=== PATIENT | female | born 1995 | race Caucasian/White ===

== ENCOUNTER 2021-01-23 16:23 | Emergency (ER) | payer OTHER, SELFPAY ==
--- NOTE | ~2021-01-23 | CT_ITS ---
EXAMINATION: CT ABDOMEN AND PELVIS WITHOUT CONTRAST CLINICAL INFORMATION: Left lower quadrant pain. COMPARISON: None TECHNIQUE: Multidetector volumetric imaging was performed from the superior aspect of the liver through the pubic symphysis. Sagittal and coronal reformatted images were obtained on the technologist's workstation. This CT examination was performed using dose optimization techniques as appropriate, variously including the following: Automated exposure control. Adjustment of mA and/or kV according to patient size (this includes techniques or standardized protocols for targeted exams where dose is matched to indication/reason for exam; i.e. extremities or head). Use of iterative reconstruction technique. DLP: 397 mGy-cm FINDINGS: LUNG BASES: The visualized lung bases are unremarkable. LIVER, GALLBLADDER, AND BILIARY TREE: The liver is normal in size, shape, and attenuation. No focal hepatic lesion or biliary ductal dilatation is present. The gallbladder is unremarkable with no evidence of radiopaque gallstones, gallbladder wall thickening, or obvious pericholecystic inflammatory changes. PANCREAS: Unremarkable. SPLEEN: Unremarkable. ADRENAL GLANDS: Unremarkable. KIDNEYS AND URETERS: The kidneys are normal in size, shape, and attenuation. Nonobstructing right midpole renal stone measuring 0.2 cm, too small to characterize by Hounsfield units. This is located approximately 6.3 cm from the posterior axillary line. No left-sided renal or ureteral stone. No hydronephrosis or hydroureter. No perinephric stranding. BLADDER: Unremarkable. GASTROINTESTINAL TRACT: No bowel wall thickening or associated inflammatory change. No small or large bowel obstruction. Unremarkable appendix. PERITONEAL CAVITY: No intra-abdominal free air. Bdki-ol-wyvnwjnf simple free fluid within the pelvis. No organized fluid collection/abscess formation. No mass. ABDOMINAL WALL: No significant hernia is appreciated. LYMPH NODES: Normal. VASCULAR: Unremarkable. PELVIC VISCERA: Pelvic free fluid. Otherwise, the uterus and adnexa appear unremarkable. OSSEOUS STRUCTURES: Unremarkable. CT/CT abdomen pelvis wo con IMPRESSION: 1. Ycio-by-jaqfplzc, simple pelvic free fluid. Otherwise, the uterus and adnexa appear grossly unremarkable. 2. Nonobstructing right midpole renal stone measuring 0.2 cm. No additional renal or ureteral stone. No hydronephrosis or hydroureter. Unremarkable urinary bladder. 3. No bowel wall thickening or associated inflammatory change. No small or large bowel obstruction. Unremarkable appendix.
[2021-01-23 16:35] VITALS: BP 113/82; PULSE 81; RESP 18; O2SAT 99; BMI 23.4
[2021-01-23 17:16] LABS: MANUAL DIFF FLAG NO
[2021-01-23 17:21] LABS: Basophils Absolute Auto 0.1 X10*3/uL (0.0-0.2); Basophils Percent Auto 0.5 % (0-2); Eosinophils Absolute Auto 0.1 X10*3/uL (0.0-0.4); Eosinophils Percent Auto 0.6 % (0-4); Hematocrit 45.7 % (37-47); Hemoglobin 15.5 g/dl (12.0-16.0); Imm Gran Abs Auto 0.04 X10*3/uL (0.00-0.03); Imm Gran Pct Auto 0.4 % (0.0-0.4); Lymphocytes Absolute Auto 2.1 X10*3/uL (1.2-4.9); Mean Corpuscular HGB Conc 33.9 g/dl (31.0-35.0); Mean Corpuscular Volume 91.4 fL (80-98); Mean Platelet Volume 9.7 fL (9.4-12.3); Monocytes Absolute Auto 0.6 X10*3/uL (0.1-1.2); Monocytes Percent Auto 5.6 % (2-11); Neutrophils Absolute Auto 8.5 X10*3/uL (2.0-8.3); Neutrophils Percent Auto 74.9 % (45-73); Platelet Count 232 X10*3/uL (160-400); Red Cell Distribution Width 11.9 % (11.0-16.0); White Blood Count 11.4 X10*3/uL (4.8-10.8)
[2021-01-23 17:22] LABS: Glucose Urine UA NEG (NEG); Leukocyte Esterase Urine TRACE (NEG); Nitrite Urine NEG (NEG); Specific Gravity - Urine <= 1.005 (1.005-1.025); UACC Culture Trigger YES; Urine Blood NEG (NEG); Urine Ketones NEG (NEG); Urine Protein NEG (NEG-TRACE)
[2021-01-23 17:24] LABS: Appearance Urine CLEAR; Color Urine YELLOW
[2021-01-23 17:37] LABS: Bacteria Urine 1+ /LPF; RBC Urine 0 /HPF (0); Squamous Epithelial Cell Urine 1+ /LPF; WBC Urine 0-2 /HPF (0-4)
[2021-01-23 17:48] LABS: Alanine Aminotransferase 13 U/L (0-31); Albumin Level 4.6 g/dL (3.5-5.0); Alkaline Phosphatase 72 U/L (39-117); Anion Gap 13 (12-20); Aspartate Amino Transferase 19 U/L (5-31); Bilirubin Total 0.4 mg/dL (0.0-1.0); Blood Urea Nitrogen 12 mg/dL (9-16); Calcium 9.9 mg/dL (8.4-10.2); Carbon Dioxide 28 mmol/L (22-29); Chloride 103 mmol/L (96-108); Creatinine Clr Calc Pharmacy 77.9; Estimated Glomerular Filt Rate > 60; Glucose Random 86 mg/dL (60-115); Potassium 4.6 mmol/L (3.3-5.1); Sodium 139 mmol/L (135-145); Total Protein 7.9 g/dL (6.5-8.0)
[2021-01-23 19:56] VITALS: BP 115/69; PULSE 87; RESP 16; TEMP 36.7; O2SAT 99
--- NOTE | 2021-01-23 20:30 | ED_ITS ---
HPI - Abdominal Pain General Chief Complaint: Abdominal Pain Stated Complaint: lower abdominal pain Time Seen by Provider: 01/23/21 17:24 Source: patient Mode of arrival: ambulatory Limitations: no limitations History of Present Illness HPI narrative: 25-year-old female presents with left lower quadrant abdominal pa in. Was evaluated at urgent care and referred to the emergency department for further workup. She states that she has had the pain accompanied with nausea and vomiting for 1 day. She does not report fevers or chills, chest pain or pressure, palpitations, shortness breath, abdominal distention, hematuria, and edema. MD elicited complaint: abdominal pain Onset (ago): day(s) (1) Pain Consistency: constant Location: LLQ Severity: moderate Quality: aching Migration to: no migration Exacerbating factors: movement Relieving factors: nothing Associated symptoms: nausea and vomiting Treatments prior to arrival: NSAIDs Related Data Previous Rx's Medication Instructions Recorded cetirizine 10 mg capsule 10 mg PO DAILY PRN #30 cap 06/17/20 prednisone 20 mg tablet 20 mg PO DAILY 9 Days #18 tab MDD 06/17/20 3 for 3days;2 for 3 days;1 3da fluconazole 150 mg tablet 150 mg PO Q OTHER DAY 3 Days #2 tab 12/13/20 levofloxacin 500 mg tablet 500 mg PO DAILY 7 Days #7 tab 12/13/20 prednisone 20 mg tablet 20 mg PO .COMPLEX #18 tab 12/13/20 levofloxacin 500 mg PO Q24H #6 tab 01/23/21 tamsulosin [Flomax] 0.4 mg PO DAILY #14 cap 01/23/21 Allergies Allergy/AdvReac Type Severity Reaction Status Date / Time clindamycin [CLINDAMYCIN] Allergy Severe HIVES Verified 01/23/21 16:35 sulfamethoxazole Allergy Severe HIVES Verified 01/23/21 16:35 [From BACTRIM] trimethoprim [From BACTRIM] Allergy Severe HIVES Verified 01/23/21 16:35 acetaminophen [Percocet] Allergy Intermediate hives Verified 01/23/21 16:35 oxycodone [From PERCOCET] Allergy Intermediate HIVES Verified 01/23/21 16:35 penicillin G Allergy Intermediate hives Verified 01/23/21 16:35 Sulfa (Sulfonamide Allergy Intermediate hives Verified 01/23/21 16:35 Antibiotics) hydrocodone [HYDROCODONE] Allergy Mild SWELLING Verified 01/23/21 16:35 pineapple [PINEAPPLE] Allergy Mild SWELLING Verified 01/23/21 16:35 sumatriptan [From IMITREX] Allergy Mild ANAPHYLAXIS Verified 01/23/21 16:35 Clindamycin HCl Allergy Severe anaphylaxis Uncoded 01/23/21 16:35 Review of Systems Review of Systems Constitutional: No Fever, No Chills ENT/Mouth: No Ear Pain, No Hoarseness, No sore throat Eyes: No Eye Pain, No Swelling, No Redness, No Foreign Body Cardiovascular: No Chest Pain, No SOB Respiratory: No Cough, No Dyspnea Gastrointestinal: Positive Nausea, positive Vomiting, No Diarrhea, positive left lower quadrant abdominal Pain Genitourinary: No Dysuria, No Hematuria Musculoskeletal: No joint pain, No Myalgias, No Joint Swelling Skin: No Skin lacerations, No rash Neuro: No Weakness, No Numbness, No Paresthesias, No Loss of Consciousness, No Dizziness, No Headache Psych: No Anxiety/Panic, No Depression Heme/Lymph: no easy bruising, no Lymphadenopathy Endocrine: No Polyuria, No Polydipsia Yes all other systems are reviewed and are negative Physical Exam Vital Signs: Vital Signs: Last Vital Signs Temp 97.0 F 01/23/21 22:00 Pulse 64 01/23/21 22:00 Resp 16 01/23/21 22:00 BP 114/74 01/23/21 22:00 Pulse Ox 99 01/23/21 22:00 Body Mass Index 23.4 Appearance: Alert. Oriented X3. Mild distress. Eyes: Pupils equal, round and reactive to light. ENT: Pharynx normal. Neck: Normal inspection. Neck supple. CVS: Normal heart rate and rhythm. Pulses normal. Respiratory: No respiratory distress. Breath sounds normal. Abdomen: Soft and tender to the left lower quadrant, positive left-sided CVA tenderness. Skin: Skin warm and dry. Normal skin color. Normal skin turgor. Extremities: No lower extremity edema. Neuro: No motor deficit. No sensory deficit. Course Course Course Narrative: 25-year-old female presents for left lower quadrant abdominal pain. She was evaluated by urgent care who felt that she needed a larger workup. She does have positive leukocyte esterase and elevated white count of 11.4. She does not have any prior abdominal surgeries, and no history of kidney stones. Will order CT scan of abdomen. CT scan of abdomen and pelvis indicates kidney stone. No indication of pyelo or perinephric stranding. Will give Levaquin because patient is allergic to all penicillins and Bactrim. Patient does understand the risks of this medication and tendon rupture. Patient verbalized understanding of and agrees to plan of care discharge home. MDM - Abdominal Pain Differential Diagnosis Differential diagnosis: Likely abdominal pain, acute appendicitis, bowel perforation, calculus of kidney, pancreatitis and renal colic Medical Records Attestation: I reviewed the patient's medical records. Lab Data Attestation: I reviewed the patient's lab results. Result diagrams: 01/23/21 17:08 01/23/21 17:08 Labs: Lab Results 01/23/21 01/23/21 01/23/21 Range/Units 17:08 17:08 17:08 WBC 11.4 H (4.8-10.8) X10*3/uL RBC 5.00 (4.20-5.50) X10*6/uL Hgb 15.5 (12.0-16.0) g/dl Hct 45.7 (37-47) % MCV 91.4 (80-98) fL MCH 31.0 (27.0-33.0) pg MCHC 33.9 (31.0-35.0) g/dl RDW 11.9 (11.0-16.0) % Plt Count 232 (160-400) X10*3/uL MPV 9.7 (9.4-12.3) fL Immature Gran % (Auto) 0.4 (0.0-0.4) % Neut % (Auto) 74.9 H (45-73) % Lymph % (Auto) 18.0 L (20-40) % [place] % (Auto) 5.6 (2-11) % Eos % (Auto) 0.6 (0-4) % Baso % (Auto) 0.5 (0-2) % Lymph # (Auto) 2.1 (1.2-4.9) X10*3/uL [place] # (Auto) 0.6 (0.1-1.2) X10*3/uL Eos # (Auto) 0.1 (0.0-0.4) X10*3/uL Baso # (Auto) 0.1 (0.0-0.2) X10*3/uL Abs Immat Gran (auto) 0.04 H (0.00-0.03) X10*3/uL Absolute Neuts (auto) 8.5 H (2.0-8.3) X10*3/uL Absolute Nucleated RBC 0.000 (0.0-0.012) X10*3/uL Nucleated RBC % (auto) 0.0 (0.0-0.2) /100WBC Sodium 139 (135-145) mmol/L Potassium 4.6 (3.3-5.1) mmol/L Chloride 103 (96-108) mmol/L Carbon Dioxide 28 (22-29) mmol/L Anion Gap 13 (12-20) BUN 12 (9-16) mg/dL Creatinine 0.84 (0.5-1.4) mg/dL Estim Creat Clear Calc 77.9 Estimated GFR > 60 Random Glucose 86 (60-115) mg/dL Calcium 9.9 (8.4-10.2) mg/dL Total Bilirubin 0.4 (0.0-1.0) mg/dL AST 19 (5-31) U/L ALT 13 (0-31) U/L Alkaline Phosphatase 72 (39-117) U/L Total Protein 7.9 (6.5-8.0) g/dL Albumin 4.6 (3.5-5.0) g/dL Urine Color YELLOW Urine Appearance CLEAR Urine pH 6.0 (5.0-8.0) Ur Specific [place] <= 1.005 (1.005-1.025) Urine Protein NEG (NEG-TRACE) MG/DL Urine Glucose (UA) NEG (NEG) MG/DL Urine Ketones NEG (NEG) MG/DL Urine Blood NEG (NEG) Urine Nitrite NEG (NEG) Ur Leukocyte Esterase TRACE H (NEG) Urine RBC 0 (0) /HPF Urine WBC 0-2 (0-4) /HPF Ur Squamous Epith Cells 1+ /LPF Urine Bacteria 1+ /LPF Imaging Data CT scan - abdomen: Attestation: I personally reviewed and interpreted this imaging study as follows: Radiologist's impression: FINDINGS: LUNG BASES: The visualized lung bases are unremarkable. LIVER, GALLBLADDER, AND BILIARY TREE: The liver is normal in size, shape, and attenuation. No focal hepatic lesion or biliary ductal dilatation is present. The gallbladder is unremarkable with no evidence of radiopaque gallstones, gallbladder wall thickening, or obvious pericholecystic inflammatory changes. PANCREAS: Unremarkable. SPLEEN: Unremarkable. ADRENAL GLANDS: Unremarkable. KIDNEYS AND URETERS: The kidneys are normal in size, shape, and attenuation. Nonobstructing right midpole renal stone measuring 0.2 cm, too small to characterize by Hounsfield units. This is located approximately 6.3 cm from the posterior axillary line. No left-sided renal or ureteral stone. No hydronephrosis or hydroureter. No perinephric stranding. BLADDER: Unremarkable. GASTROINTESTINAL TRACT: No bowel wall thickening or associated inflammatory change. No small or large bowel obstruction. Unremarkable appendix. PERITONEAL CAVITY: No intra-abdominal free air. Pvbi-yx-uvrmkdgx simple free fluid within the pelvis. No organized fluid collection/abscess formation. No mass. ABDOMINAL WALL: No significant hernia is appreciated. LYMPH NODES: Normal. VASCULAR: Unremarkable. PELVIC VISCERA: Pelvic free fluid. Otherwise, the uterus and adnexa appear unremarkable. OSSEOUS STRUCTURES: Unremarkable. CT/CT abdomen pelvis wo con IMPRESSION: 1. Ectw-nq-lphydqyb, simple pelvic free fluid. Otherwise, the uterus and adnexa appear grossly unremarkable. 2. Nonobstructing right midpole renal stone measuring 0.2 cm. No additional renal or ureteral stone. No hydronephrosis or hydroureter. Unremarkable urinary bladder. 3. No bowel wall thickening or associated inflammatory change. No small or large bowel obstruction. Unremarkable appendix. Discharge Plan Discharge Clinical Impression: Calculus of kidney, UTI (urinary tract infection) Patient Disposition: Home, Self-Care Instructions: Kidney Stones (ED), Urinary Tract Infection in Women (ED) Additional Instructions: You were evaluated for left lower flank and abdominal pain. CT scan shows a kidney stone on the left side and urinalysis indicates UTI. Please take Bactrim DS twice a day for the next 7 days. For the kidney stone please take Flomax. This medication may drop her blood pressure and cause dizziness. Use caution when changing positions Please follow-up with primary care physician. You may need follow-up for this kidney stone. You may also consider following up with Urology. Thank you for choosing this emergency department for evaluation. Please follow-up with primary care physician as needed. Return to the emergency department for any new, concerning, or worsening symptoms. Prescriptions: New levofloxacin 500 mg tablet 500 mg PO Q24H Qty: 6 RF: 0 tamsulosin [Flomax] 0.4 mg capsule 0.4 mg PO DAILY Qty: 14 RF: 0 No Action prednisone 20 mg tablet 20 mg PO DAILY MDD 3 for 3days;2 for 3 days;1 3da 9 Days Qty: 18 RF: 0 Zyrtec 10 mg capsule 10 mg PO DAILY PRN (Reason: itching) Qty: 30 RF: 0 prednisone 20 mg tablet 20 mg PO .COMPLEX Qty: 18 RF: 0 levofloxacin 500 mg tablet 500 mg PO DAILY 7 Days Qty: 7 RF: 0 fluconazole 150 mg tablet 150 mg PO Q OTHER DAY 3 Days Qty: 2 RF: 0 Referrals: Zack Dutton MD [Physician] - 2 days (Left kidney stone) Interventions: ED Discharge Assessment Last Done: 01/23/21 23:25 Discharge Date/Time: 01/23/21 23:39 [facility] Past Medical History Attestation statement: The following information was validated with the patient. Source: old records reviewed Medical History Migraines Social History Social History Advance Directives: No Advance Directives Information Provided: No Patient : No
[2021-01-23 22:00] VITALS: BP 114/74; PULSE 64; RESP 16; TEMP 36.1; O2SAT 99
[2021-01-23] MEDS: levoFLOXacin 500 MG TABLET PO (22:48)
[2021-01-23] MEDS: Ketorolac Tromethamine 60 MG/2 ML VIAL IM (22:48)
[2021-01-23] MEDS: Tamsulosin HCL 0.4 MG CAPSULE PO (22:48)
== END 2021-01-23 23:39 | disposition home or self-care (01) ==
PROVIDERS: Emergency Provider Internal Medicine; PCP Internal Medicine
DX: N20.0 Calculus of kidney (principal); N39.0 Urinary tract infection, site not specified; R10.32 Left lower quadrant pain; Z79.899 Other long term (current) drug therapy
CPT/HCPCS: 36415; 74176; 80053; 81001; 81003; 85025; 87086; 96372; 99284; J1885

== ENCOUNTER 2023-04-02 10:02 | Outpatient (AMB) | payer OTHER, SELFPAY ==
--- NOTE | 2023-04-02 11:15 | MHC.OFFWIV ---
Intake Vital Signs 04/02/23 11:17 Height 5 ft 1 in Weight 122 lb BMI 23.0 BP 110/62 Blood Pressure Location Rt brachial Position Sitting Pulse 68 Pulse Source Pulse Oximeter Temp 98.0 F Temp Source Temporal Artery Scan Pulse Oximetry (%) 99 Intake Visit Reasons: EST/sore throat due to cleaning supplies? Intake Note: pt is here for c/o sore throat due smoking weed or dusting at home. denies feeling sick just throat is sore Patient Tobacco Use Status: Never used Tobacco Allergies clindamycin [CLINDAMYCIN] Allergy (Severe, Verified 04/02/23 11:16) HIVES sulfamethoxazole [From BACTRIM] Allergy (Severe, Verified 04/02/23 11:16) HIVES trimethoprim [From BACTRIM] Allergy (Severe, Verified 04/02/23 11:16) HIVES acetaminophen [Percocet] Allergy (Intermediate, Verified 04/02/23 11:16) hives oxycodone [From PERCOCET] Allergy (Intermediate, Verified 04/02/23 11:16) HIVES penicillin G Allergy (Intermediate, Verified 04/02/23 11:16) hives Sulfa (Sulfonamide Antibiotics) Allergy (Intermediate, Verified 04/02/23 11:16) hives hydrocodone [HYDROCODONE] Allergy (Mild, Verified 04/02/23 11:16) SWELLING pineapple [PINEAPPLE] Allergy (Mild, Verified 04/02/23 11:16) SWELLING sumatriptan [From IMITREX] Allergy (Mild, Verified 04/02/23 11:16) ANAPHYLAXIS Clindamycin HCl Allergy (Severe, Uncoded 02/07/22 14:51) anaphylaxis Medication List - Last Reconciled 04/02/23 by Danny Salas MD azithromycin take 500 mg today (day 1), then 250 mg for 4 days (days 2-5) PO cetirizine (Zyrtec) 10 mg PO DAILY PRN norethindrone-ethin estradiol 0.4-35 mg-mcg (Balziva (28)) 1 tab PO DAILY Do you need a note to return to daycare/school/sports/work: Yes HPI EST/sore throat due to cleaning supplies? HPI Details Patient presents for a sick visit. Reporting symptoms of sinus congestion, sore throat and difficulty swallowing. Low-grade fever. No family member is sick. No recent travel. Patient reports symptoms of malaise and fatigue. [facility] Medical History Migraines Social History Patient Tobacco Use Status: Never used Tobacco Physical Exam Vital Signs: Last Vital Signs Temp 98.0 F 04/02/23 11:17 Pulse 68 04/02/23 11:17 BP 110/62 04/02/23 11:17 Pulse Ox 99 04/02/23 11:17 BMI result Body Mass Index 23.0 Const General: cooperative and healthy appearing Nutritional Appearance: well nourished Orientation/consciousness: patient oriented x3 Limitations: no limitations HEENT Head: Yes normal to inspection Eyes General: appearance normal, both eyes and all related structures Neck Neck: Yes normal visual inspection Chest Chest palpation & inspection: normal palpation of entire chest wall Resp Effort & Inspection: normal respiratory effort Neuro General: patient oriented x3 Assessment & Plan Assessment & Plan (1) Acute sinusitis: Code(s): J01.90 - Acute sinusitis, unspecified Qualifiers: Sinusitis location: unspecified location Recurrence: not specified as recurrent Qualified Code(s): J01.90 - Acute sinusitis, unspecified Plan: Antibiotics ordered. Increase fluid intake. Tylenol for aches and pains. If symptoms worsen, follow-up here for a recheck.. COVID testing done, will call with results. Up for work given. Orders: Orders SARS-CoV2/FLU/RSV Today R43.9 - Unspecified disturbances of smell and taste Medications: New azithromycin take 500 mg today (day 1), then 250 mg for 4 days (days 2-5) PO 6 tabs 0RF Coding Level of Care Code Est Pt Level 3 (16888) Diagnoses Acute sinusitis, recurrence not specified, unspecified location J01.90 Sinusitis location: unspecified location Recurrence: not specified as recurrent
[2023-04-02 11:17] VITALS: BP 110/62; PULSE 68; TEMP 36.7; O2SAT 99; BMI 23.0
== END 2023-04-02 11:54 | disposition home or self-care (01) ==
PROVIDERS: PCP Internal Medicine; Visit Provider Internal Medicine
DX: J01.90 Acute sinusitis, unspecified (principal)
CPT/HCPCS: 99213

== ENCOUNTER 2023-04-02 11:52 | Outpatient (REF) | payer OTHER, SELFPAY ==
[2023-04-02 15:56] LABS: Influenza A PCR NEGATIVE (Negative); Influenza B PCR NEGATIVE (Negative); Resp Syncy Virus RNA Qual PCR NEGATIVE (Negative); SARS COV2 PCR INHOUSE NEGATIVE (Negative)
== END 2023-04-02 11:53 | disposition home or self-care (01) ==
LOC: HO.LAB 11:52
PROVIDERS: Visit Provider Internal Medicine
DX: R43.9 Unspecified disturbances of smell and taste (principal); Z20.822 Contact with and (suspected) exposure to COVID-19
CPT/HCPCS: 0241U

== ENCOUNTER 2023-04-13 14:07 | Outpatient (AMB) | payer OTHER, SELFPAY ==
--- NOTE | 2023-04-13 15:36 | MHC.OFFWIV ---
Intake Vital Signs 04/13/23 15:43 Weight 124 lb BP 120/70 Blood Pressure Location Rt brachial Position Sitting Pulse 66 Pulse Source Pulse Oximeter Pulse Oximetry (%) 100 Oxygen Delivery Method Room Air Intake Visit Reasons: EST/fractured right hand Intake Note: Patient here for possible Right hand fracture, pt states she was boxing the other day without gear. Patient Tobacco Use Status: Never used Tobacco Allergies clindamycin [CLINDAMYCIN] Allergy (Severe, Verified 04/13/23 15:41) HIVES sulfamethoxazole [From BACTRIM] Allergy (Severe, Verified 04/13/23 15:41) HIVES trimethoprim [From BACTRIM] Allergy (Severe, Verified 04/13/23 15:41) HIVES acetaminophen [Percocet] Allergy (Intermediate, Verified 04/13/23 15:41) hives oxycodone [From PERCOCET] Allergy (Intermediate, Verified 04/13/23 15:41) HIVES penicillin G Allergy (Intermediate, Verified 04/13/23 15:41) hives Sulfa (Sulfonamide Antibiotics) Allergy (Intermediate, Verified 04/13/23 15:41) hives hydrocodone [HYDROCODONE] Allergy (Mild, Verified 04/13/23 15:41) SWELLING pineapple [PINEAPPLE] Allergy (Mild, Verified 04/13/23 15:41) SWELLING sumatriptan [From IMITREX] Allergy (Mild, Verified 04/13/23 15:41) ANAPHYLAXIS Clindamycin HCl Allergy (Severe, Uncoded 04/13/23 15:41) anaphylaxis Do you need a note to return to daycare/school/sports/work: No HPI HPI Comments History of Present Illness Details This is a 27-year-old female who presents to the office today for sick visit. Patient complaining of right hand pain, swelling, and bruising. 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 However, she did not however close the other day but continued to box and punch the punching bag. She developed pain, swelling, and bruising of her right hand. She denies any numbness /weakness / paresthesias of her extremity. [facility] Medical History Migraines Social History Patient Tobacco Use Status: Never used Tobacco Review of Systems Const All systems reviewed & are unremarkable except as noted in HPI and below Reports no additional complaints Eyes Reports no additional complaints ENT Reports no additional complaints Card Reports no additional complaints Resp Reports no additional complaints GI Reports no additional complaints Reports no additional complaints Musc Reports no additional complaints Skin/Breast Reports system reviewed and no additional complaints, except as documented Neuro Reports no additional complaints Psych Reports no additional complaints Endo Reports no additional complaints [place]/Lymph Reports no additional complaints Aller/Immun Reports no additional complaints Physical Exam Vital Signs: Last Vital Signs Pulse 66 04/13/23 15:43 BP 120/70 04/13/23 15:43 Pulse Ox 100 04/13/23 15:43 Oxygen Delivery Method Room Air 04/13/23 15:43 Const Other: Vital signs reviewed. Constitutional: Non-toxic appearing. No acute distress. Well-developed and well-nourished. HEENT: Normocephalic and atraumatic. Tympanic membranes without erythema, edema, or bulging bilaterally. External auditory canals without erythema or edema bilaterally. Moist mucous membranes. No pharyngeal erythema or exudates. Skin: Warm and dry. No rashes or lesions noted. Neck: Full and painless range of motion. No cervical lymphadenopathy. Cardio: Regular rate and rhythm. No murmurs, gallops, or rubs. No lower extremity edema. No JVD. Pulmonary: No respiratory distress. No accessory muscle usage. Clear to auscultation bilaterally without wheezing, crackles, or rhonchi. Gastrointestinal: Soft, nontender, and nondistended in all 4 quadrants. Normoactive bowel sounds in all 4 quadrants. Genitourinary: No CVA tenderness. Musculoskeletal: There is swelling and ecchymosis located at the right 3rd MCP joint and there is tenderness to palpation of the right 3rd metacarpal and MCP joint. Patient has full range of motion of all 5 fingers. No tenderness to palpation of the right wrist. Full range of motion of the right wrist. Neuro: Alert and oriented x4. Cranial nerves 2-12 grossly intact. No focal deficits appreciated. Psych: Normal mood and affect. Assessment & Plan Assessment & Plan (1) Right hand pain: Code(s): M79.641 - Pain in right hand Plan: This is a 27-year-old female presenting to the office complaining of right hand pain, swelling, and ecchymosis. Differential diagnosis includes fracture versus contusion. X-ray of the right hand was obtained and was negative for any acute fracture. History and physical most consistent with a contusion of the right 3rd metacarpal/ MCP joint. Recommended rest/activity modification, ice to the area, and elevation of the extremity. Continue with acetaminophen/ibuprofen for pain management as long as patient has no medical contraindications. Patient was instructed to follow-up here or proceed directly to the emergency room for persistent/ worsening symptoms. Patient verbalizes her understanding and she is in agreement with the plan. Coding Level of Care Code Est Pt Level 3 (55802) Diagnoses Right hand pain M79.641
[2023-04-13 15:43] VITALS: BP 120/70; PULSE 66; O2SAT 100
== END 2023-04-13 17:00 ==
PROVIDERS: PCP Internal Medicine; Visit Provider Physician Assistant Medical
DX: M79.641 Pain in right hand (principal)
CPT/HCPCS: 99213

== ENCOUNTER 2023-04-13 16:11 | Outpatient (REF) | payer OTHER, SELFPAY | END 2023-04-13 16:12 | disposition home or self-care (01) | LOC: HO.HMGCX 16:11 | PROVIDERS: Visit Provider Physician Assistant Medical | DX: M79.641 Pain in right hand (principal) | CPT/HCPCS: 73130 ==

== ENCOUNTER 2023-04-14 10:43 | Emergency (ER) | payer OTHER, SELFPAY ==
[2023-04-14 10:52] VITALS: BP 144/98; PULSE 79; RESP 19; TEMP 36.6; O2SAT 100; BMI 22.0
[2023-04-14 12:06] VITALS: BP 121/78; PULSE 67; RESP 16; O2SAT 100
--- NOTE | 2023-04-14 12:32 | ED.GENADULT ---
HPI - General Adult General Chief complaint: Abdominal Pain Stated complaint: kidney stones? Time Seen by Provider: 04/14/23 12:32 Source: patient Mode of arrival: ambulatory Limitations: no limitations History of Present Illness HPI narrative: Patient is a 27 year old assigned female at with a history of kidney stones presenting to the emergency department today with left flank pain. Patient states that this morning she started having left flank pain and it feels consistent with her previous kidney stones. Patient denies any dizziness, lightheadedness, abdominal pain, nausea, vomiting, fever, chills, blurry vision, double vision, loss of vision, chest pain, difficulty breathing, shortness of breath, back pain, night sweats, pain with urination, increased urinary frequency, increased urinary urgency, blood in her urine or stool, syncope or a near syncopal episode, recent trauma or falls, bowel incontinence, bladder incontinence, bowel retention, bladder retention, or any other complaints at this time. Onset (ago): hour(s) Location: left (flank) Severity: mild Severity scale (1-10): 4 Relieving factors: none Exacerbating factors: none Associated symptoms: denies other symptoms Treatments prior to arrival: none Related Data Home Medications Medication Instructions Recorded Confirmed norethindrone 0.4 mg-ethinyl 1 tab PO DAILY 02/07/22 estradiol 35 mcg tablet (Afia (28)) Previous Rx's Medication Instructions Recorded cetirizine 10 mg capsule (Zyrtec) 10 mg PO DAILY PRN itching #30 caps 06/17/20 tamsulosin 0.4 mg capsule 0.4 mg PO DAILY #7 caps 04/14/23 Allergies Allergy/AdvReac Type Severity Reaction Status Date / Time clindamycin [CLINDAMYCIN] Allergy Severe HIVES Verified 04/14/23 10:52 sulfamethoxazole Allergy Severe HIVES Verified 04/14/23 10:52 [From BACTRIM] trimethoprim [From BACTRIM] Allergy Severe HIVES Verified 04/14/23 10:52 acetaminophen [Percocet] Allergy Intermediate hives Verified 04/14/23 10:52 oxycodone [From PERCOCET] Allergy Intermediate HIVES Verified 04/14/23 10:52 penicillin G Allergy Intermediate hives Verified 04/14/23 10:52 Sulfa (Sulfonamide Allergy Intermediate hives Verified 04/14/23 10:52 Antibiotics) hydrocodone [HYDROCODONE] Allergy Mild SWELLING Verified 04/14/23 10:52 pineapple [PINEAPPLE] Allergy Mild SWELLING Verified 04/14/23 10:52 sumatriptan [From IMITREX] Allergy Mild ANAPHYLAXIS Verified 04/14/23 10:52 Clindamycin HCl Allergy Severe anaphylaxis Uncoded 04/14/23 10:52 Review of Systems Constitutional: Constitutional: Reports no additional constitutional complaints, Denies chills, Denies fever(s) and Denies night sweats Eyes: Eyes: Reports no additional eye complaints, Denies blurry vision, Denies change in vision, Denies diplopia, Denies eye discharge, Denies loss of vision and Denies eye pain ENT: Denies dizziness Cardiovascular: Cardiovascular: Reports no additional cardiovascular complaints, Denies chest pain, Denies lightheadedness, Denies Loss of Consciousness and Denies dyspnea Respiratory: Respiratory: Reports no additional respiratory complaints and Denies dyspnea Gastrointestinal: Gastrointestinal: Reports no additional gastrointestinal complaints, Denies abdominal pain, Denies melena, Denies hematochezia, Denies change in bowel habits and Denies change in stool character Genitourinary: Genitourinary: Denies hematuria, Denies urinary frequency, Denies dysuria, Denies urinary incontinence, Denies urinary hesitancy and Denies urinary urgency Comments: left flank pain Musculoskeletal: Musculoskeletal: Reports no additional musculoskeletal complaints, Denies numbness and Denies tingling Neurologic: Denies dizziness, Denies loss of vision, Denies numbness and Denies tingling Psychiatric: Psychiatric: Reports no additional psychiatric complaints Endocrine: Endocrine: Reports no additional endocrine complaints Hematologic/Lymphatic: Hematologic/Lymphatic: Reports no additional hematologic/lymphatic complaints Allergic/Immunologic: Allergic/Immunologic: Reports no additional allergic/immunologic complaints [facility] Past Medical History Attestation statement: The following information was validated with the patient. Source: old records reviewed and nursing notes reviewed Medical History Migraines Social History Social History Patient Tobacco Use Status: Never used Tobacco Advance Directives: No Advance Directives Information Provided: Yes Physical Exam ED Vital Signs: Vital Signs - 24 hr 04/14/23 10:52 04/14/23 12:06 Temperature 98 F Pulse Rate 79 67 Respiratory Rate 19 16 Blood Pressure 144/98 H 121/78 Pulse Oximetry 100 100 Oxygen Delivery Method Room Air Room Air BMI result Body Mass Index 22.0 Const General: cooperative, no acute distress, alert and awake Nutritional Appearance: well nourished Orientation/consciousness: patient oriented x3 Limitations: no limitations HENMT Head: Yes normal to inspection and Yes atraumatic Ears: hearing grossly normal bilaterally and external ears normal General nose exam: Normal external nose present, no nasal discharge noted and no epistaxis Face and sinus: Yes normal facial exam, No abrasion and No laceration Mouth: Normal oral and palatal mucosa present, no drooling and no muffled voice Eyes General: appearance normal, both eyes and all related structures Periorbital: periorbital findings normal Eyelids: Yes eyelids normal Conjunctivae: conjunctivae normal Pupils: Equal, round and reactive pupils present EOM: EOMs intact bilaterally Neck Neck: Yes normal visual inspection, Yes full ROM and Yes no lymphadenopathy Chest Chest palpation & inspection: normal inspection of the chest Resp Effort & Inspection: normal respiratory effort and able to speak in complete sentences Auscultation: clear to auscultation bilaterally Cardio Rate: regular rate Rhythm: regular rhythm GI Inspection: Yes normal to inspection Palpation (GI): Soft to palpation, not firm, nontender, no guarding and not rigid General: Yes no CVA tenderness Back/Spine/Pelvis Back: no CVA tenderness Neuro General: patient oriented x3 and moves all extremities Cranial nerves: Yes Equal, round and reactive pupils present Cognition (Neuro): normal cognition Motor exam (neuro): 5/5 motor strength present throughout Sensory Exam: Normal double simultaneous stimulation for sensation Coordination: [id number] test normal Extrem General: Yes normal to inspection, Yes full ROM and Yes capillary refill normal Psych Appearance: grossly normal Mental Status: mental status grossly normal Affect: normal affect Attitude: cooperative Thought process: Normal thought process present Thought content: Normal thought content present Insight: Good insight present (Psych) Medications Administered Discontinued Medications Generic Name Dose Route Start Last Admin Trade Name Freq PRN Reason Stop Dose Admin Ketorolac Tromethamine 15 mg 04/14/23 12:35 04/14/23 13:01 Ketorolac Tromethamine 15 Mg/Ml Vial IM 04/14/23 12:36 15 mg ONCE ONE Administration Medical Decision Making Medical Decision Making MDM Narrative: Patient is a 27 year old assigned female at with a history of kidney stones presenting to the emergency department today with flank pain. Patient's physical exam was unremarkable. Patient's blood work was unremarkable. Patient's urine showed 3-5 RBC. I explained my physical exam findings as well as all test results to the patient. I answered all questions asked by the patient. Patient received IM Toradol which she stated helped her symptoms significantly. I stressed the importance of the patient taking her medication as prescribed. I stressed the importance of the patient following up with her primary care provider. I stressed the importance of the patient returning to the emergency department immediately if her symptoms were to worsen or if she were to develop any dizziness, shortness of breath, difficulty breathing, chest pain, blurry vision, loss of vision, nausea, vomiting, abdominal pain, fever, chills, back pain, or any other complaints. Patient verbalized agreement and understanding with this treatment plan and discharge. Differential Diagnosis Differential Diagnoses: The differential diagnosis associated with the presentation includes Kidney stone Lab Data [facility] Lab Attestation statement: I reviewed the patient's lab results. My interpretation of these studies and their corresponding values is that they are grossly normal. 04/14/23 11:09 04/14/23 11:09 Labs: Lab Results 04/14/23 Range/Units 11:09 WBC 8.2 (4.8-10.8) X10*3/uL RBC 4.25 (4.20-5.50) X10*6/uL Hgb 13.4 (12.0-16.0) g/dl Hct 39.2 (37.0-47.0) % MCV 92.2 (80.0-98.0) fL MCH 31.5 (27.0-33.0) pg MCHC 34.2 (31.0-35.0) g/dl RDW 12.1 (11.0-16.0) % Plt Count 250 (160-400) X10*3/uL MPV 9.3 L (9.4-12.3) fL Immature Gran % (Auto) 0.4 (0.0-0.4) % Neut % (Auto) 72.8 (45-73) % Lymph % (Auto) 19.9 L (20-40) % Dunn % (Auto) 4.9 (2-11) % Eos % (Auto) 1.3 (0-4) % Baso % (Auto) 0.7 (0-2) % Lymph # (Auto) 1.6 (1.2-4.9) X10*3/uL Dunn # (Auto) 0.4 (0.1-1.2) X10*3/uL Eos # (Auto) 0.1 (0.0-0.4) X10*3/uL Baso # (Auto) 0.1 (0.0-0.2) X10*3/uL Abs Immat Gran (auto) 0.03 (0.00-0.03) X10*3/uL Absolute Neuts (auto) 5.9 (2.0-8.3) x10*3/uL Absolute Nucleated RBC 0.000 (0.0-0.012) X10*3/uL Nucleated RBC % (auto) 0.0 (0.0-0.2) /100WBC Sodium 139 (135-145) mmol/L Potassium 3.9 (3.3-5.1) mmol/L Chloride 104 (96-108) mmol/L Carbon Dioxide 24 (22-29) mmol/L Anion Gap 15 (12-20) BUN 11 (9-16) mg/dL Creatinine 0.85 (0.5-1.4) mg/dL Estim Creat Clear Calc 83.0 Estimated GFR > 60 Random Glucose 98 (60-115) mg/dL Calcium 9.5 (8.4-10.2) mg/dL Urine Color Yellow Urine Appearance Clear Urine pH 6.0 (5.0-9.0) Ur Specific [place] >= 1.030 H (1.005-1.025) Urine Protein Negative (Neg-Trace) mg/dL Urine Glucose (UA) Negative (Negative) mg/dL Urine Ketones Negative (Negative) mg/dL Urine Blood Trace (Negative) Urine Nitrite Negative (Negative) Ur Leukocyte Esterase Negative (Negative) Urine RBC 3-5 H (0-2) /HPF Urine WBC 0-5 (0-5) /HPF Ur Squamous Epith Cells 6-10 (0-2) /HPF Urine Bacteria None Seen (None Seen) Hyaline Casts 0-2 (0-2) /LPF Urine Test NEGATIVE (NEGATIVE) Discharge Plan Discharge Clinical Impression: Kidney stone Patient Disposition: Home, Self-Care Instructions: Kidney Stones (ED) Additional Instructions: Follow up with your primary care provider and a urolgoist. Return to the emergency department immediately if your symptoms worsen or if you develop any dizziness, shortness of breath, difficulty breathing, chest pain, blurry vision, loss of vision, nausea, vomiting, abdominal pain, fever, chills, back pain, or any other complaints. Prescriptions: New tamsulosin 0.4 mg capsule 0.4 mg PO DAILY Qty: 7 0RF No Action Zyrtec 10 mg capsule 10 mg PO DAILY PRN (Reason: itching) Qty: 30 0RF Balziva (28) 0.4-35 mg-mcg tablet 1 tab PO DAILY Referrals: [facility] [place] [facility] [Provider Group] (Call to establish and follow up with a urologist.) Erendira Bedolla MD [Primary Care Provider] - Stand Alone Forms: Work/School Release Discharge Date/Time: 04/14/23 13:10 Print Language: Mohawk
--- NOTE | 2023-04-14 13:04 | PC.NURSE ---
pt reports 6/10 abd pain. IM Ketorolac given R deltoid, pt tolerated well. pt cleared for discharge, discharge instructions reviewed with pt.
== END 2023-04-14 13:10 | disposition home or self-care (01) ==
PROVIDERS: Emergency Provider Emergency Medicine Emergency Medical Services; PCP Internal Medicine
DX: N20.0 Calculus of kidney (principal)
CPT/HCPCS: 36415; 80048; 81001; 81025; 85025; 96372; 99283; 99284; J1885

== ENCOUNTER 2023-09-07 08:49 | Outpatient (AMB) | payer OTHER, SELFPAY ==
[2023-09-07 09:02] VITALS: BP 120/60; PULSE 80; TEMP 36.3; O2SAT 99; BMI 22.0
--- NOTE | 2023-09-07 09:02 | MHC.OFFWIV ---
Intake Vital Signs 09/07/23 09:02 Height 5 ft 3 in Weight 124 lb BMI 22.0 BP 120/60 Blood Pressure Location Lt brachial Position Sitting Pulse 80 Pulse Source Pulse Oximeter Temp 97.4 F Temp Source Temporal Artery Scan Pulse Oximetry (%) 99 Oxygen Delivery Method Room Air Intake Visit Reasons: EP Pelvic to back pain Intake Note: pt is here today for pelvic to back pain started yesterday Patient Tobacco Use Status: Never used Tobacco Allergies clindamycin [CLINDAMYCIN] Allergy (Severe, Verified 09/07/23 09:02) HIVES sulfamethoxazole [From BACTRIM] Allergy (Severe, Verified 09/07/23 09:02) HIVES trimethoprim [From BACTRIM] Allergy (Severe, Verified 09/07/23 09:02) HIVES acetaminophen [Percocet] Allergy (Intermediate, Verified 09/07/23 09:02) hives oxycodone [From PERCOCET] Allergy (Intermediate, Verified 09/07/23 09:02) HIVES penicillin G Allergy (Intermediate, Verified 09/07/23 09:02) hives Sulfa (Sulfonamide Antibiotics) Allergy (Intermediate, Verified 09/07/23 09:02) hives hydrocodone [HYDROCODONE] Allergy (Mild, Verified 09/07/23 09:02) SWELLING pineapple [PINEAPPLE] Allergy (Mild, Verified 09/07/23 09:02) SWELLING sumatriptan [From IMITREX] Allergy (Mild, Verified 09/07/23 09:02) ANAPHYLAXIS Clindamycin HCl Allergy (Severe, Uncoded 04/14/23 10:52) anaphylaxis Do you need a note to return to daycare/school/sports/work: Yes PFSH Medical History Migraines Social History Patient Tobacco Use Status: Never used Tobacco Review of Systems Const All systems reviewed & are unremarkable except as noted in HPI and below Physical Exam Vital Signs: Last Vital Signs Temp 97.4 F 09/07/23 09:02 Pulse 80 09/07/23 09:02 BP 120/60 09/07/23 09:02 Pulse Ox 99 09/07/23 09:02 Oxygen Delivery Method Room Air 09/07/23 09:02 BMI result Body Mass Index 22.0 Const General: comfortable and no acute distress GI Inspection: Yes normal to inspection Palpation (GI): Soft to palpation Auscultation: normal bowel sounds General: Yes Bimanual renal exam normal bilaterally and Yes no CVA tenderness Speculum Exam - Vagina: abnormal vaginal discharge white, malodorous and frothy Speculum Exam - Cervix: normal appearance of the cervix and Cervical os open OB/external & speculum: Cervical os open Back/Spine/Pelvis Back: no CVA tenderness Results AMB Urinalysis, Automated UA Leukoctes 15 Anita/uL Last Edit by LUCINA Sage on 09/07/23 09:27 UA Leukoctes previously reported as 0 Syeda Brower 09/07/23 09:27 UA Nitrite Negative Last Edit by LUCINA Sage on 09/07/23 09:25 UA Urobilinogen 0.2 mg/dL Last Edit by LUCINA Sage on 09/07/23 09:25 UA Protein 0 mg/dL Last Edit by LUCINA Sage on 09/07/23 09:25 UA pH 6.0 Last Edit by LUCINA Sage on 09/07/23 09:25 UA Blood 0 Franklyn/uL Last Edit by LUCINA Sage on 09/07/23 09:25 UA Specific Isabel 1.020 Last Edit by LUCINA Sage on 09/07/23 09:27 UA Specific Isabel previously reported as 1.015 Syeda Brower 09/07/23 09:27 UA Ketone Negative Last Edit by LUCINA Sage on 09/07/23 09:25 UA Bilirubin 0 mg/dL Last Edit by LUCINA Sage on 09/07/23 09:25 UA Glucose 0 mg/dL Last Edit by LUCINA Sage on 09/07/23 09:25 Results Reviewed Results Reviewed: Laboratory Last Values Urine pH (Auto) 6.0 09/07/23 09:24 Specific Isabel (Auto) 1.020 09/07/23 09:24 Urine Protein (Auto) 0 mg/dL 09/07/23 09:24 Glucose (UA)(Auto) 0 mg/dL 09/07/23 09:24 Urine Ketones (Auto) Negative 09/07/23 09:24 Urine Blood (Auto) 0 Franklyn/uL 09/07/23 09:24 Urine Nitrite (Auto) Negative 09/07/23 09:24 Urine Bilirubin (Auto) 0 mg/dL 09/07/23 09:24 Urine Urobilinogen (Auto) 0.2 mg/dL 09/07/23 09:24 Leukocyte Esterase (Auto) 15 Anita/uL 09/07/23 09:24 Assessment & Plan Assessment & Plan (1) Vaginitis and vulvovaginitis: Code(s): N76.0 - Acute vaginitis Plan: - Take medicine as directed (2) Cystitis: Code(s): N30.90 - Cystitis, unspecified without hematuria Plan: Take medicine as directed Orders: Orders UA CC w/rflx Micro + Cult Today N30.90 - Cystitis, unspecified without hematuria SureSwab Adv Vaginitis Plus Today N76.0 - Acute vaginitis AMB Urinalysis Automated Today Z13.9 - Encounter for screening, unspecified Medications: New metronidazole 0.75%(37.5mg/5gram) 1 appful vaginal BEDTIME 5 days 70 grams 0RF N76.0 - Acute vaginitis fluconazole TAKE 1 TABLET NOW, MAY SECOND DOSE IN 3 DAYS 150 mg PO DAILY 2 tabs 0RF N76.0 - Acute vaginitis ciprofloxacin HCl 500 mg PO BID 7 days 14 tabs 0RF N30.90 - Cystitis, unspecified without hematuria Coding Level of Care Code Est Pt Level 3 (08673) Diagnoses Vaginitis and vulvovaginitis N76.0 Cystitis N30.90 Time Spent (min) 15
== END 2023-09-07 09:35 | disposition home or self-care (01) ==
PROVIDERS: PCP Internal Medicine; Visit Provider Nurse Practitioner Family
DX: N76.0 Acute vaginitis (principal); N30.90 Cystitis, unspecified without hematuria
CPT/HCPCS: 81003; 99213

== ENCOUNTER 2023-09-07 09:31 | Outpatient (REF) | payer OTHER, SELFPAY ==
[2023-09-07 15:23] LABS: Appearance Urine Cloudy; Color Urine Yellow; Glucose Urine UA Negative (Negative); Nitrite Urine Negative (Negative); PH 5.5 (5.0-9.0); Urine Blood Negative (Negative); Urine Ketones Negative (Negative); Urine Protein Negative (Neg-Trace)
[2023-09-07 15:24] LABS: Leukocyte Esterase Urine Moderate (2+) (Negative); UMIC TRIGGER UACC YES
[2023-09-07 15:32] LABS: Bacteria Urine 3+ (None Seen); Hyaline Casts Urine 0-2 /LPF (0-2); RBC Urine 0-2 /HPF (0-2); UACC Culture Trigger YES
[2023-09-08 13:46] LABS: BV Int Neg Control Negative (Negative); BV Int Pos Control Positive (Positive)
== END 2023-09-07 09:32 | disposition home or self-care (01) ==
LOC: HO.LAB 09:31
PROVIDERS: Visit Provider Nurse Practitioner Family
DX: N76.0 Acute vaginitis (principal)
CPT/HCPCS: 36415; 81001; 81003; 81513; 87086; 87480; 87481; 87491; 87510; 87591; 87660; 87661

== ENCOUNTER 2024-02-26 10:04 | Outpatient (AMB) | payer OTHER, SELFPAY ==
--- NOTE | 2024-02-26 10:04 | MHC.OFFWIV ---
Intake Vital Signs 02/26/24 10:06 Height 5 ft 3 in Weight 124 lb BMI 22.0 BP 112/80 Blood Pressure Location Rt brachial Position Sitting Pulse 78 Pulse Source Pulse Oximeter Temp 98.3 F Temp Source Oral Pulse Oximetry (%) 98 Oxygen Delivery Method Room Air Intake Visit Reasons: EP- sore throat, stuffy, congestion Intake Note: pt c/o sore throat, congestion. Started Sunday Patient Tobacco Use Status: Never used Tobacco Allergies clindamycin [CLINDAMYCIN] Allergy (Severe, Verified 02/26/24 10:05) HIVES sulfamethoxazole [From BACTRIM] Allergy (Severe, Verified 02/26/24 10:05) HIVES trimethoprim [From BACTRIM] Allergy (Severe, Verified 02/26/24 10:05) HIVES acetaminophen [Percocet] Allergy (Intermediate, Verified 02/26/24 10:05) hives oxycodone [From PERCOCET] Allergy (Intermediate, Verified 02/26/24 10:05) HIVES penicillin G Allergy (Intermediate, Verified 02/26/24 10:05) hives Sulfa (Sulfonamide Antibiotics) Allergy (Intermediate, Verified 02/26/24 10:05) hives hydrocodone [HYDROCODONE] Allergy (Mild, Verified 02/26/24 10:05) SWELLING sumatriptan [From IMITREX] Allergy (Mild, Verified 02/26/24 10:05) ANAPHYLAXIS Clindamycin HCl Allergy (Severe, Uncoded 02/26/24 10:05) anaphylaxis Do you need a note to return to daycare/school/sports/work: No HPI HPI Comments History of Present Illness Details Patient is a 28-year-old female complaining of 5 days of a sore throat, head congestion, coughing and now developed left ear pain. She states she has been taking NyQuil and DayQuil around the clock and her congestion seems to be improving but she is concerned as she has now developed ear pain. She states she tested for COVID twice at home and both times, it was negative. She denies any fevers, shortness of breath or history of asthma. [facility] Medical History Migraines Social History Patient Tobacco Use Status: Never used Tobacco Review of Systems Const All systems reviewed & are unremarkable except as noted in HPI and below Physical Exam Vital Signs: Last Vital Signs Temp 98.3 F 02/26/24 10:06 Pulse 78 02/26/24 10:06 BP 112/80 02/26/24 10:06 Pulse Ox 98 02/26/24 10:06 Oxygen Delivery Method Room Air 02/26/24 10:06 BMI result Body Mass Index 22.0 Const General: cooperative, healthy appearing, comfortable and no acute distress Orientation/consciousness: patient oriented x3 Limitations: no limitations HEENT Head: Yes normal to inspection Ears: hearing grossly normal bilaterally, external ears normal, TM normal on the left and TM abnormal wth effusion and erythematous General nose exam: Normal external nose present, Normal nares present and No nasal discharge present Face and sinus: Yes normal facial exam and Yes sinuses nontender Mouth: Normal oral and palatal mucosa present and moist mucous membranes Throat: Yes tonsils normal, Yes uvula midline and Yes posterior oropharynx abnormal (Erythema) Eyes General: appearance normal, both eyes and all related structures Neck Neck: Yes normal visual inspection Resp Effort & Inspection: normal respiratory effort, able to speak in complete sentences, no respiratory distress, not tachypneic, no tripod positioning and no use of accessory muscles Auscultation: clear to auscultation bilaterally Cardio Rate: regular rate Rhythm: regular rhythm Heart sounds: normal S1 and S2 Skin General skin exam: no rashes or lesions noted Neuro General: patient oriented x3 Extrem General: Yes normal to inspection and Yes no clubbing, cyanosis or edema Results AMB Rapid Strep AMB Rapid Strep Negative Last Edit by Vishal Ford CMA on 02/26/24 10:19 Assessment & Plan Assessment & Plan (1) Otitis media: Code(s): H66.90 - Otitis media, unspecified, unspecified ear Qualifiers: Otitis media type: mucoid Chronicity: acute Laterality: right Qualified Code(s): H65.191 - Other acute nonsuppurative otitis media, right ear Plan: Rapid strep negative, vital signs stable, physical exam remarkable for otitis media right side. With patient's allergy to PCN, I do not want to send a cephalosporin, we will send a Z-Pee. Plan See above Orders: Orders AMB Rapid Strep Screen Today Z13.9 - Encounter for screening, unspecified Medications: New azithromycin For 250 mg dose pack: take 500 mg today (day 1), then 250 mg for 4 days (days 2-5) PO 6 tabs 0RF Coding Level of Care Code Est Pt Level 3 (24517) Diagnoses Acute mucoid otitis media of right ear H65.191 Otitis media type: mucoid Chronicity: acute Laterality: right
[2024-02-26 10:06] VITALS: BP 112/80; PULSE 78; TEMP 36.8; O2SAT 98; BMI 22.0
== END 2024-02-26 10:26 | disposition home or self-care (01) ==
PROVIDERS: PCP Internal Medicine; Visit Provider Physician Assistant
DX: Z13.9 Encounter for screening, unspecified (principal); H65.191 Other acute nonsuppurative otitis media, right ear
CPT/HCPCS: 87880; 99213

== ENCOUNTER 2024-03-18 11:06 | Outpatient (AMB) | payer OTHER, SELFPAY ==
[2024-03-18 11:48] VITALS: BP 108/84; PULSE 85; TEMP 36.9; O2SAT 98; BMI 22.5
--- NOTE | 2024-03-18 11:48 | AM.OFFWIN_ITS ---
Intake Vital Signs 03/18/24 11:48 Height 5 ft 3 in Weight 127 lb BMI 22.5 BP 108/84 Blood Pressure Location Rt brachial Position Sitting Pulse 85 Pulse Source Pulse Oximeter Temp 98.4 F Temp Source Oral Pulse Oximetry (%) 98 Oxygen Delivery Method Room Air Intake Visit Reasons: EP Cough Intake Note: pt c/o cough x 3 weeks. Worse at night Patient Tobacco Use Status: Never used Tobacco Allergies clindamycin [CLINDAMYCIN] Allergy (Severe, Verified 03/18/24 12:03) HIVES sulfamethoxazole [From BACTRIM] Allergy (Severe, Verified 03/18/24 12:03) HIVES trimethoprim [From BACTRIM] Allergy (Severe, Verified 03/18/24 12:03) HIVES acetaminophen [Percocet] Allergy (Intermediate, Verified 03/18/24 12:03) hives oxycodone [From PERCOCET] Allergy (Intermediate, Verified 03/18/24 12:03) HIVES penicillin G Allergy (Intermediate, Verified 03/18/24 12:03) hives Sulfa (Sulfonamide Antibiotics) Allergy (Intermediate, Verified 03/18/24 12:03) hives hydrocodone [HYDROCODONE] Allergy (Mild, Verified 03/18/24 12:03) SWELLING sumatriptan [From IMITREX] Allergy (Mild, Verified 03/18/24 12:03) ANAPHYLAXIS Clindamycin HCl Allergy (Severe, Uncoded 03/18/24 12:03) anaphylaxis Do you need a note to return to daycare/school/sports/work: No HPI HPI Comments History of Present Illness Details 28 y/o female patient who presents to [facility] in clinic with c/o Persistent cough for 3 weeks now. She was diagnosed with Otitis media 02/25 and was prescribed Azithromycin. Pt c/o persitent dry cough which is worse at night time. Denies fevers, or chills. Denies smoking weed or cigarettes. PFSH Medical History Migraines Social History Patient Tobacco Use Status: Never used Tobacco Review of Systems Const All systems reviewed & are unremarkable except as noted in HPI and below Physical Exam Vital Signs: Last Vital Signs Temp 98.4 F 03/18/24 11:48 Pulse 85 03/18/24 11:48 BP 108/84 03/18/24 11:48 Pulse Ox 98 03/18/24 11:48 Oxygen Delivery Method Room Air 03/18/24 11:48 BMI result Body Mass Index 22.5 Const General: cooperative and comfortable Orientation/consciousness: patient oriented x3 Resp Effort & Inspection: normal respiratory effort and able to speak in complete sentences Auscultation: clear to auscultation bilaterally, no crackles, no rales, no rhonchi and no wheezes Cardio Heart sounds: S1 normal heart sound present and S2 normal heart sound present Neuro General: patient oriented x3 Assessment & Plan Assessment & Plan (1) Cough in adult: Code(s): R05.9 - Cough, unspecified Plan: Ordered Chest Xray OTC cough remedies. Orders: Orders XR chest 2V Today R05.9 - Cough, unspecified Medications: New benzonatate 100 mg PO TID 90 caps 0RF R05.9 - Cough, unspecified Coding Level of Care Code Est Pt Level 4 (98013) Diagnoses Cough in adult R05.9 Time Spent (min) 20
== END 2024-03-18 13:45 | disposition home or self-care (01) ==
PROVIDERS: PCP Internal Medicine; Visit Provider Nurse Practitioner Family
DX: R05.9 Cough, unspecified (principal)
CPT/HCPCS: 99214

== ENCOUNTER 2024-03-18 11:45 | Outpatient (REF) | payer OTHER, SELFPAY | END 2024-03-18 11:46 | disposition home or self-care (01) | LOC: HO.LAB 11:45 | PROVIDERS: Visit Provider Nurse Practitioner Family | DX: Z13.89 Encounter for screening for other disorder (principal) ==

== ENCOUNTER 2024-03-18 12:46 | Outpatient (REF) | payer OTHER, SELFPAY ==
--- NOTE | ~2024-03-18 | XR_ITS ---
EXAMINATION: XR CHEST CLINICAL INFORMATION: Persisting cough for 3 weeks COMPARISON: None available. TECHNIQUE: 2 views of the chest were obtained. FINDINGS: No significant abnormality is noted involving the heart, lungs, mediastinum, bony thorax or soft tissues. XR/XR chest 2V IMPRESSION: Unremarkable examination. Electronically signed by: Shirlene Luna MD 03/18/2024 04:45 PM EDT
== END 2024-03-18 12:47 | disposition home or self-care (01) ==
LOC: HO.HMGCX 12:46
PROVIDERS: PCP Internal Medicine; Visit Provider Nurse Practitioner Family
DX: R05.9 Cough, unspecified (principal)
CPT/HCPCS: 71046

== ENCOUNTER 2024-11-27 13:25 | Outpatient (AMB) | payer OTHER, SELFPAY ==
--- OUTSIDE RECORDS SUMMARY | 2024-11-27 13:31 | XMS_ITS | Continuity of Care Document ---
Author Organization [facility]. 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 Name Role Phone Unavailable Unavailable Unavailable Unavailable Unavailable Unavailable Unavailable Unavailable Unavailable Unavailable Unavailable Unavailable Problems Urinary tract infectious dis ease Onset:10-Aug-2021 Donovan Shafer MD Abdominal pain Onset:10-Aug-2021 Donovan Shafer MD Upper respiratory infection Onset:16-Jul-2021 ZZZFLATI Allergies and Adverse Reactions Opioids-Morphine & Related(A llergy) Onset: 10-Aug-2021 Reaction:NO OPOIDS Penicillins(Allergy) Onset: 10-Aug-2021 Reaction:UNKNOWN clindamycin(Allergy) Onset: 10-Aug-2021 Reaction:UNKNOWN Sulfamethoxazole(Allergy) Onset: 10-Aug-2021 Reaction:UNKNOWN trimethoprim(Allergy) Onset: 10-Aug-2021 Reaction:UNKNOWN sumatriptan(Allergy) Onset: 10-Aug-2021 Reaction:UNKNOWN Pineapple(Allergy) Onset: 10-Aug-2021 Reaction:UNKNOWN Social History Smoking Status Smokes tobacco daily Recorded: 10-Aug-2021 Never smoked tobacco Recorded: 16-Jul-2021
--- NOTE | 2024-11-27 15:18 | AM.OFFWIN_ITS ---
Intake Vital Signs 11/27/24 15:24 Weight 132 lb BP 114/68 Blood Pressure Location Lt brachial Position Sitting Pulse 72 Pulse Source Pulse Oximeter Pulse Oximetry (%) 99 Oxygen Delivery Method Room Air Intake Visit Reasons: EP lower abdominal pain 1+week Intake Note: Patient here for lower abdominal pain that has been present for about 1 week. Patient Tobacco Use Status: Never used Tobacco Allergies clindamycin [CLINDAMYCIN] Allergy (Severe, Verified 11/27/24 15:31) HIVES sulfamethoxazole [From BACTRIM] Allergy (Severe, Verified 11/27/24 15:31) HIVES trimethoprim [From BACTRIM] Allergy (Severe, Verified 11/27/24 15:31) HIVES acetaminophen [Percocet] Allergy (Intermediate, Verified 11/27/24 15:31) hives oxycodone [From PERCOCET] Allergy (Intermediate, Verified 11/27/24 15:31) HIVES penicillin G Allergy (Intermediate, Verified 11/27/24 15:31) hives Sulfa (Sulfonamide Antibiotics) Allergy (Intermediate, Verified 11/27/24 15:31) hives hydrocodone [HYDROCODONE] Allergy (Mild, Verified 11/27/24 15:31) SWELLING sumatriptan [From IMITREX] Allergy (Mild, Verified 11/27/24 15:31) ANAPHYLAXIS Clindamycin HCl Allergy (Severe, Uncoded 11/27/24 15:31) anaphylaxis Do you need a note to return to daycare/school/sports/work: No HPI HPI Comments History of Present Illness Details 29 y/o Female patient who presents to [facility] walk in clinic with c/o lower abdominal pain that has been present for about 1 week. Reports Vaginal discharge with foul odor associated with Supra-pubic abdominal pain. Sexually active with one female partner - no concerns for STI. Currently on OCP. She does report getting frequent BV infections - usually gets Metronidazole Gel which helps. Denies nausea, vomiting, fevers or chills. [facility] Medical History (Updated 11/27/24 @ 15:57 by Yesi Claudio NP) Vaginitis and vulvovaginitis Migraines Social History Patient Tobacco Use Status: Never used Tobacco Review of Systems Const All systems reviewed & are unremarkable except as noted in HPI and below Physical Exam Vital Signs: Last Vital Signs Pulse 72 11/27/24 15:24 BP 114/68 11/27/24 15:24 Pulse Ox 99 11/27/24 15:24 Oxygen Delivery Method Room Air 11/27/24 15:24 Const General: no acute distress Nutritional Appearance: well nourished Orientation/consciousness: patient oriented x3 Resp Effort & Inspection: normal respiratory effort Cardio Heart sounds: S1 normal heart sound present and S2 normal heart sound present GI Palpation (GI): Soft to palpation and Tenderness to palpation present (GI) suprapubicly Other: Pelvic/Vaginal exam deferred. General: Yes no CVA tenderness Back/Spine/Pelvis Back: no CVA tenderness Neuro General: patient oriented x3, gait normal and moves all extremities Psych Speech and movement: Normal speech and movement present Assessment & Plan Assessment & Plan (1) Vaginitis and vulvovaginitis: Code(s): N76.0 - Acute vaginitis Plan: Provided Safe Sex education. Clean all sex Toys with warm water and soap No douching Have partner treated also before resuming sexual contacts. Medications: New metronidazole 0.75%(37.5mg/5gram) 1 appful vaginal BID 70 grams 0RF 3 days N76.0 - Acute vaginitis Coding Level of Care Code Est Pt Level 4 (08438) Diagnoses Vaginitis and vulvovaginitis N76.0 Time Spent (min) 20
[2024-11-27 15:24] VITALS: BP 114/68; PULSE 72; O2SAT 99
== END 2024-11-27 16:06 | disposition home or self-care (01) ==
PROVIDERS: PCP Internal Medicine; Visit Provider Nurse Practitioner Family
DX: N76.0 Acute vaginitis (principal)

== ENCOUNTER → 2024-11-27 13:25 | Outpatient (BNVA) | payer OTHER, SELFPAY | PROVIDERS: PCP Internal Medicine; Visit Provider Nurse Practitioner Family | DX: N76.0 Acute vaginitis (principal) | CPT/HCPCS: 99212 ==

== ENCOUNTER 2025-01-04 09:25 | Emergency (ER) | payer OTHER, SELFPAY ==
[2025-01-04 09:27] VITALS: BP 142/72; PULSE 76; RESP 16; TEMP 36.7; O2SAT 98; BMI 23.7
--- NOTE | 2025-01-04 09:35 | ED.GENADULT ---
HPI - General Adult General Chief complaint: Allergic Reaction Stated complaint: allergic reaction Time Seen by Provider: 01/04/25 09:35 Source: patient Mode of arrival: ambulatory Limitations: no limitations History of Present Illness ED Provider: Yamilet Espinosa PA-C HPI narrative: Patient is a 29 year old assigned female at with no reported medical history presenting to the emergency department today with lip swelling and facial itching. Patient states that she was evaluated at an urgent care yesterday for itching of the face and was diagnosed with contact dermatitis and given a steroid cream. Patient states that this morning she began to have some lip swelling and increased itchiness. Patient denies any dizziness, lightheadedness, abdominal pain, nausea, vomiting, fever, chills, blurry vision, double vision, loss of vision, chest pain, difficulty breathing, shortness of breath, back pain, night sweats, pain with urination, increased urinary frequency, increased urinary urgency, blood in her urine or stool, syncope or a near syncopal episode, recent trauma or falls, bowel incontinence, bladder incontinence, or any other complaints at this time. Relieving factors: none Exacerbating factors: none Related Data Home Medications ?Medication ?Instructions ?Recorded ?Confirmed norethindrone 0.4 mg-ethinyl 1 tab PO DAILY 02/07/22 estradiol 35 mcg tablet (Balziva (28)) naproxen 500 mg tablet 500 mg PO BID 02/26/24 Previous Rx's ?Medication ?Instructions ?Recorded metronidazole 0.75 % (37.5 mg/5 1 appful vaginal BID 3 days #70 11/27/24 gram) vaginal gel grams prednisone 20 mg tablet 20 mg PO DAILY 7 days #7 tabs 01/04/25 Allergies Allergy/AdvReac Type Severity Reaction Status Date / Time clindamycin (CLINDAMYCIN) Allergy Severe HIVES Verified 01/04/25 09:28 sulfamethoxazole (From Allergy Severe HIVES Verified 01/04/25 09:28 BACTRIM) trimethoprim (From BACTRIM) Allergy Severe HIVES Verified 01/04/25 09:28 acetaminophen (Percocet) Allergy Intermediate hives Verified 01/04/25 09:28 oxycodone (From PERCOCET) Allergy Intermediate HIVES Verified 01/04/25 09:28 penicillin G Allergy Intermediate hives Verified 01/04/25 09:28 Sulfa (Sulfonamide Allergy Intermediate hives Verified 01/04/25 09:28 Antibiotics) hydrocodone (HYDROCODONE) Allergy Mild SWELLING Verified 01/04/25 09:28 sumatriptan (From IMITREX) Allergy Mild ANAPHYLAXIS Verified 01/04/25 09:28 Clindamycin HCl Allergy Severe anaphylaxis Uncoded 01/04/25 09:28 Review of Systems Constitutional: Constitutional: Reports no additional constitutional complaints, Denies chills, Denies fever(s) and Denies night sweats Eyes: Eyes: Reports no additional eye complaints, Denies blurry vision, Denies change in vision, Denies diplopia, Denies eye discharge, Denies loss of vision and Denies eye pain ENT: Denies dizziness Comments: lip swelling facial itching Cardiovascular: Cardiovascular: Reports no additional cardiovascular complaints, Denies chest pain, Denies lightheadedness, Denies Loss of Consciousness and Denies dyspnea Respiratory: Respiratory: Reports no additional respiratory complaints and Denies dyspnea Gastrointestinal: Gastrointestinal: Reports no additional gastrointestinal complaints, Denies abdominal pain, Denies melena, Denies hematochezia, Denies change in bowel habits and Denies change in stool character Genitourinary: Genitourinary: Denies hematuria, Denies urinary frequency, Denies dysuria, Denies urinary incontinence, Denies urinary hesitancy and Denies urinary urgency Musculoskeletal: Musculoskeletal: Reports no additional musculoskeletal complaints, Denies numbness and Denies tingling Neurologic: Denies dizziness, Denies loss of vision, Denies numbness and Denies tingling Psychiatric: Psychiatric: Reports no additional psychiatric complaints Endocrine: Endocrine: Reports no additional endocrine complaints Hematologic/Lymphatic: Hematologic/Lymphatic: Reports no additional hematologic/lymphatic complaints Allergic/Immunologic: Allergic/Immunologic: Reports no additional allergic/immunologic complaints [facility] Past Medical History Attestation statement: The following information was validated with the patient. Source: old records reviewed and nursing notes reviewed Medical History Vaginitis and vulvovaginitis Migraines Social History Social History Patient Tobacco Use Status: Never used Tobacco Advance Directives: No Advance Directives Information Provided: Yes Physical Exam ED Vital Signs: Vital Signs - 24 hr 01/04/25 09:27 01/04/25 09:39 01/04/25 10:10 Temperature 98.1 F 98.8 F 98.8 F Pulse Rate 76 84 84 Respiratory Rate 16 20 20 Blood Pressure 142/72 H 131/84 131/84 Pulse Oximetry 98 97 97 Oxygen Delivery Method Room Air Room Air Room Air BMI result Body Mass Index 23.7 Const General: cooperative, no acute distress, alert and awake Nutritional Appearance: well nourished Orientation/consciousness: patient oriented x3 HENMT Head: Yes normal to inspection and Yes atraumatic Ears: hearing grossly normal bilaterally and external ears normal General nose exam: Normal external nose present, no nasal discharge noted and no epistaxis Face and sinus: No abrasion and No laceration Mouth: Normal oral and palatal mucosa present, no drooling, no muffled voice and other (minimal swelling of the upper lip) Eyes General: appearance normal, both eyes and all related structures Periorbital: periorbital findings normal Eyelids: Yes eyelids normal Conjunctivae: conjunctivae normal Pupils: Equal, round and reactive pupils present EOM: EOMs intact bilaterally Neck Neck: Yes normal visual inspection, Yes full ROM and Yes no lymphadenopathy Resp Effort & Inspection: normal respiratory effort and able to speak in complete sentences Neuro General: patient oriented x3, moves all extremities and CN's II-XI intact bilaterally Cranial nerves: Yes Equal, round and reactive pupils present Cognition (Neuro): normal cognition Extrem General: Yes normal to inspection, Yes full ROM and Yes capillary refill normal Psych Appearance: grossly normal Mental Status: mental status grossly normal Affect: normal affect Attitude: cooperative Thought process: Normal thought process present Thought content: Normal thought content present Insight: Good insight present (Psych) Medications Administered Discontinued Medications Generic Name Dose Route Start Last Admin Trade Name Freq PRN Reason Stop Dose Admin Methylprednisolone Sodium Succinate 60 mg 01/04/25 09:54 01/04/25 10:04 Methylprednisolone Sod Succ 125 Mg Vial IM 01/04/25 09:55 60 mg ONCE ONE Administration Medical Decision Making Medical Decision Making MDM Narrative: Patient is a 29 year old assigned female at with no reported medical history presenting to the emergency department today with lip swelling and facial itching. Patient's physical exam showed minimal upper lip swelling but was otherwise unremarkable. Facial piercings present. Patient's clinical presentation is most consistent with an unknown source allergic reaction. No evidence of anaphylaxis. Clear voice, speaking well. No mucousal membrane swelling. I explained my physical exam findings as well to the patient. I answered all questions asked by the patient. Patient given solu-medrol while in the department and prescribed prednisone. I explained to the patient the importance of keeping an exposure journal to attempt to determine the cause of her reaction. I stressed the importance of the patient taking her medication as directed (either prescribed or as the over the counter packaging recommends). I stressed the importance of the patient following up with her primary care provider. I stressed the importance of the patient returning to the emergency department immediately if her symptoms were to worsen or if she were to develop any dizziness, shortness of breath, difficulty breathing, chest pain, blurry vision, loss of vision, nausea, vomiting, abdominal pain, fever, chills, back pain, or any other complaints. Patient verbalized agreement and understanding with this treatment plan and discharge. Differential Diagnosis Differential Diagnoses: The differential diagnosis associated with the presentation includes Allergic reaction Admission/Observation Consideration of admission/observation: Escalation of care including admission/observation considered Patient would have been admitted to the hospital had her clinical presentation warranted hospital admission. Discharge Plan Discharge Clinical Impression: Allergic reaction Patient Disposition: Home, Self-Care Instructions: General Allergic Reaction (ED) Additional Instructions: Follow up with your primary care provider. Return to the emergency department immediately if your symptoms worsen or if you develop any numbness, tingling, dizziness, shortness of breath, difficulty breathing, chest pain, blurry vision, loss of vision, nausea, vomiting, abdominal pain, fever, chills, back pain, or any other complaints. Please see the information below about our Patient Portal. If you are not yet enrolled in the [facility] Patient Portal, you will receive an enrollment email invitation following your visit to any [facility] care setting. You may also self-enroll in the Patient Portal by visiting our website: [email or web address] The following information is required to access the Patient Portal: - Your [facility] Medical Record Number - Your personal home email address (must match what is in your electronic medical record, Registration staff can assist with this) - Name - Date of Capabilities of the Patient Portal: - Message some providers - View upcoming appointments - Access your health summary, medical history, and visit history - View current conditions and allergies - View procedure and lab results - View your medications, including guidelines, side effects, and precautions - Complete pre-appointment questionnaires requested by your provider - Ready summary reports of your office visits and procedures To access the Patient Portal Mobile [employer], follow these directions: - Search [employer] in the [employer] Store or Google Play Store - Download the [place] - Search for [facility] - Enter your login/password Prescriptions: New prednisone 20 mg tablet 20 mg PO DAILY 7 Days Qty: 7 0RF No Action naproxen 500 mg tablet 500 mg PO BID Balziva (28) 0.4-35 mg-mcg tablet 1 tab PO DAILY metronidazole 0.75 % (37.5mg/5 gram) gel 1 appful vaginal BID 3 Days Qty: 70 0RF Referrals: Erendira Bedolla MD [Primary Care Provider, Internal Medicine] Stand Alone Forms: Work/School Release Interventions: ED Discharge Assessment Last Done: 01/04/25 10:10 Discharge Date/Time: 01/04/25 10:11 Print Language: Japanese
[2025-01-04 09:39] VITALS: BP 131/84; PULSE 84; RESP 20; TEMP 37.1; O2SAT 97
[2025-01-04 10:10] VITALS: BP 131/84; PULSE 84; RESP 20; TEMP 37.1; O2SAT 97
== END 2025-01-04 10:11 | disposition home or self-care (01) ==
PROVIDERS: Emergency Provider Emergency Medicine; PCP Internal Medicine
DX: L50.0 Allergic urticaria (principal); Z79.899 Other long term (current) drug therapy
CPT/HCPCS: 96372; 99283; 99284; J2919

== ENCOUNTER 2025-04-29 09:32 | Outpatient (AMB) | payer OTHER, SELFPAY ==
[2025-04-29 09:42] VITALS: BP 108/78; PULSE 78; TEMP 36.7; O2SAT 99; BMI 23.5
--- NOTE | 2025-04-29 09:42 | AM.OFFWIN_ITS ---
Intake Vital Signs 04/29/25 09:42 Height 5 ft 3 in Weight 132 lb 9 oz BMI 23.5 BP 108/78 Blood Pressure Location Lt brachial Position Sitting Pulse 78 Pulse Source Pulse Oximeter Temp 98.1 F Temp Source Oral Pulse Oximetry (%) 99 Oxygen Delivery Method Room Air Intake Visit Reasons: EP-lt lower abdominal pain Intake Note: Patient presents with shooting pain on left abdomen/flank x2 weeks intermittently Patient Tobacco Use Status: Never used Tobacco Allergies clindamycin (CLINDAMYCIN) Allergy (Severe, Verified 04/29/25 09:47) HIVES sulfamethoxazole (From BACTRIM) Allergy (Severe, Verified 04/29/25 09:47) HIVES trimethoprim (From BACTRIM) Allergy (Severe, Verified 04/29/25 09:47) HIVES acetaminophen (Percocet) Allergy (Intermediate, Verified 04/29/25 09:47) hives oxycodone (From PERCOCET) Allergy (Intermediate, Verified 04/29/25 09:47) HIVES penicillin G Allergy (Intermediate, Verified 04/29/25 09:47) hives Sulfa (Sulfonamide Antibiotics) Allergy (Intermediate, Verified 04/29/25 09:47) hives hydrocodone (HYDROCODONE) Allergy (Mild, Verified 04/29/25 09:47) SWELLING sumatriptan (From IMITREX) Allergy (Mild, Verified 04/29/25 09:47) ANAPHYLAXIS Medication List - Last Reconciled 04/29/25 by Robert Cunningham MD naproxen 500 mg PO BID norethindrone-ethin estradiol 0.4-35 mg-mcg (Afia (28)) 1 tab PO DAILY Do you need a note to return to daycare/school/sports/work: Yes HPI EP-lt lower abdominal pain HPI Details History of Present Illness The patient is a 29 year old female presenting with right flank pain. Kidney stones: - Recurrent episodes of flank pain. - Describes the current pain as similar to previous episodes experienced in the past. - Last episode of kidney stones occurred approximately one year ago. - Previous CT scan from 2020 revealed a nonobstructive right mid-portal renal stone. - Reports the pain as intense, with epis odes severe enough to affect the ability to sleep. - Naproxen was used to manage the pain, with some relief noted. - Increased fluid (water) intake recentl y as a potential mitigative measure. Problem List - Left Flank pain Plan - Advised observation in the context of kidney stones unless symptoms worsen, in which an ultrasound may be ordered. - Recommended management of acute pain w ith non-NSAID analgesics like acetaminophen instead of naproxen due to its effects on renal health. - Encouraged increased oral hydration to possibly aid in the passage of stones and reduce recurrence. - Urinalysis performed to check for infe ction or hematuria; no acute findings at this assessment. - Plan to monitor symptom severity and f requency, and adjust management as needed based on patient reporting. 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 motor intact Skin: Normal turgor PFSH Medical History Vaginitis and vulvovaginitis Migraines Social History Patient Tobacco Use Status: Never used Tobacco Physical Exam Vital Signs: Last Vital Signs Temp 98.1 F 04/29/25 09:42 Pulse 78 04/29/25 09:42 BP 108/78 04/29/25 09:42 Pulse Ox 99 04/29/25 09:42 Oxygen Delivery Method Room Air 04/29/25 09:42 BMI result Body Mass Index 23.5 Results AMB Urinalysis, Automated UA Leukoctes 0 Anita/uL Last Edit by Taylor Groves CMA on 04/29/25 10:03 UA Nitrite Negative Last Edit by Taylor Groves CMA on 04/29/25 10:03 UA Urobilinogen 0.2 mg/dL Last Edit by Taylor Groves CMA on 04/29/25 10: 03 UA Protein 0 mg/dL Last Edit by Taylor Groves CMA on 04/29/25 10:03 UA pH 6.0 Last Edit by Taylor Groves CMA on 04/29/25 10:03 UA Blood 0 Franklyn/uL Last Edit by Taylor Groves CMA on 04/29/25 10:03 UA Specific [employer] [place] 1.020 Last Edit by Taylor Groves CMA on 04/29/25 10 :03 UA Ketone Negative Last Edit by Taylor Groves CMA on 04/29/25 10:03 UA Bilirubin 1 mg/dL Last Edit by Taylor Groves CMA on 04/29/25 10:03 UA Glucose 0 mg/dL Last Edit by Taylor Groves CMA on 04/29/25 10:03 Results Reviewed Results Reviewed: Laboratory Last Values Urine pH (Auto) 6.0 04/29/25 09:51 Specific [employer] [place] (Auto) 1.020 04/29/25 09:51 Urine Protein (Auto) 0 mg/dL 04/29/25 09:51 Glucose (UA)(Auto) 0 mg/dL 04/29/25 09:51 Urine Ketones (Auto) Negative 04/29/25 09:51 Urine Blood (Auto) 0 Franklyn/uL 04/29/25 09:51 Urine Nitrite (Auto) Negative 04/29/25 09:51 Urine Bilirubin (Auto) 1 mg/dL H* 04/29/25 09:51 Urine Urobilinogen (Auto) 0.2 mg/dL 04/29/25 09:51 Leukocyte Esterase (Auto) 0 Anita/uL 04/29/25 09:51 Assessment & Plan Assessment & Plan (1) Left flank pain: Code(s): R10.9 - Unspecified abdominal pain Plan Kidney stones: - Recurrent episodes of flank pain. - Describes the current pain as similar to previous episodes experienced in the past. - Last episode of kidney stones occurred approximately one year ago. - Previous CT scan from 2020 revealed a nonobstructive right mid-portal renal stone. - Reports the pain as intense, with episodes severe enough to affect the ability to sleep. - Naproxen was used to manage the pain, with some relief noted. - Increased fluid (water) intake recently as a potential mitigative measure. Problem List - Left Flank pain Plan - Advised observation in the context of kidney stones unless symptoms worsen, in which an ultrasound may be ordered. - Recommended management of acute pain with non-NSAID analgesics like acetaminophen instead of naproxen due to its effects on renal health. - Encouraged increased oral hydration to possibly aid in the passage of stones and reduce recurrence. - Urinalysis performed to check for infection or hematuria; no acute findings at this assessment. - Plan to monitor symptom severity and frequency, and adjust management as needed based on patient reporting. Orders: Orders AMB Urinalysis Automated Today Z13.9 - Encounter for screening, unspecified Coding Level of Care Code Est Pt Level 3 (10222) Diagnoses Left flank pain R10.9
== END 2025-04-29 10:12 | disposition home or self-care (01) ==
PROVIDERS: PCP Internal Medicine; Visit Provider Internal Medicine
DX: R10.9 Unspecified abdominal pain (principal); Z13.9 Encounter for screening, unspecified

== ENCOUNTER → 2025-04-29 09:32 | Outpatient (BNVA) | payer OTHER, SELFPAY | PROVIDERS: PCP Internal Medicine; Visit Provider Internal Medicine | DX: R10.A1 Flank pain, right side (principal) | CPT/HCPCS: 81003; 99212 ==

== ENCOUNTER 2025-06-23 08:39 | Outpatient (AMB) | payer OTHER, SELFPAY ==
[2025-06-23 08:41] VITALS: BP 108/60; PULSE 94; TEMP 36.9; O2SAT 100; BMI 23.4
--- NOTE | 2025-06-23 08:41 | AM.OFFWIN_ITS ---
Intake Vital Signs 06/23/25 08:41 Height 5 ft 3 in Weight 132 lb BMI 23.4 BP 108/60 Blood Pressure Location Rt brachial Position Sitting Pulse 94 Pulse Source Pulse Oximeter Temp 98.4 F Temp Source Oral Pulse Oximetry (%) 100 Oxygen Delivery Method Room Air Intake Visit Reasons: EP upset stomach for 1 month Intake Note: Patient presents c/o upset stomach x1 month. Unable to hold any food, diarrhea, bloating. Patient Tobacco Use Status: Never used Tobacco Allergies clindamycin (CLINDAMYCIN) Allergy (Severe, Verified 06/23/25 08:45) HIVES sulfamethoxazole (From BACTRIM) Allergy (Severe, Verified 06/23/25 08:45) HIVES trimethoprim (From BACTRIM) Allergy (Severe, Verified 06/23/25 08:45) HIVES acetaminophen (Percocet) Allergy (Intermediate, Verified 06/23/25 08:45) hives oxycodone (From PERCOCET) Allergy (Intermediate, Verified 06/23/25 08:45) HIVES penicillin G Allergy (Intermediate, Verified 06/23/25 08:45) hives Sulfa (Sulfonamide Antibiotics) Allergy (Intermediate, Verified 06/23/25 08:45) hives hydrocodone (HYDROCODONE) Allergy (Mild, Verified 06/23/25 08:45) SWELLING sumatriptan (From IMITREX) Allergy (Mild, Verified 06/23/25 08:45) ANAPHYLAXIS HPI HPI Comments History of Present Illness Details History of Present Illness - The patient is a 29 year old female pr esenting with a chief complaint of upset stomach and pain for the past four weeks, which has been worsening. - She reports developing diarrhea after eating any food, noting an instance where symptoms began approximately 20 minutes after a meal. - The diarrhea is non-bloody and non-wilmer ck. - She has experienced noticeable weight loss, fatigue, insomnia, and a stiff neck. - She denies any fevers, nausea, or vomi ting. - The patient also reports experiencing acid reflux and bloating after eating, which subsequently resolves. - She has no known history of H. pylori, diverticulitis, IBS, or Crohn's disease. - Her past surgical history is negative for appendectomy and cholecystectomy. Physical Exam General: Cooperative, healthy appearing, comfortable, no acute distress and well developed Orientation: Patient oriented x3 Limitations: No limitations Head: Normal to inspection Ears: Hearing grossly normal bilaterally Nose: Normal External nose present Face and sinus: Normal facial exam Eyes: Appearance normal, both eyes and all related structures Neck: Normal visual inspection and Yes full ROM Respiratory: Normal respiratory effort and able to speak in complete sentences. Clear to auscultation throughout, no wheezes, rales or rhonchi. Cardiac: regular rate and rhythm, normal s1 and s2, no mumurs, rubs or gallops GI: normoactive BS, soft, negative mcburneys, negative murphys, no TTP throughout abdomen Skin: No rashes or lesions noted Neuro: Patient oriented x3, gait normal Extremities: Normal to inspection, moving all extremities normally Review of Systems - CONSTITUTIONAL: Reports fatigue and we ight loss. - Denies fevers. - GASTROINTESTINAL: Reports upset stomac h, abdominal pain, postprandial diarrhea, acid reflux, and bloating. - Denies bloody or black stools, nausea, and vomiting. - MUSCULOSKELETAL: Reports a stiff neck. - NEUROLOGICAL: Reports insomnia. - GENITOURINARY: Denies urinary symptoms . All systems reviewed and are unremarkable except as noted in HPI [facility] Medical History Vaginitis and vulvovaginitis Migraines Social History Patient Tobacco Use Status: Never used Tobacco Physical Exam Vital Signs: Last Vital Signs Temp 98.4 F 06/23/25 08:41 Pulse 94 06/23/25 08:41 BP 108/60 06/23/25 08:41 Pulse Ox 100 06/23/25 08:41 Oxygen Delivery Method Room Air 06/23/25 08:41 BMI result Body Mass Index 23.4 Assessment & Plan Assessment & Plan (1) Abdominal pain in female: Code(s): R10.9 - Unspecified abdominal pain Plan: Abdominal Pain and Diarrhea The patient is a 29-year-old female with a four-week history of worsening, postprandial abdominal pain and diarrhea, associated with weight loss and fatigue. VSS, pt well appearing and PE unremarkable. The primary differential is a suspected H. pylori infection vs diverticulitis vs appendicitis vs cholecystitis vs IBS The patient will undergo a breath test to evaluate for H. pylori. She was advised to have nothing to eat or drink for two hours prior to the test and to abstain from chewing gum. She will return to the clinic at 11:00 for the test, which is expected to take 15 minutes. If the test is positive for H. pylori, the treatment will be a 10-14 day course of medications. The patient was counseled that the treatment regimen can be harsh and may cause side effects such as diarrhea and nausea, but it is effective for curing the infection. Plan Patient was informed and verbally consented to the use of an ambient scribe for clinic note documentation during this visit. Orders: Orders H Pylori Breath Test Today Coding Level of Care Code Est Pt Level 3 (67171) Diagnoses Abdominal pain in female R10.9
--- OUTSIDE RECORDS SUMMARY | 2025-06-23 09:16 | XMS_ITS | Clinical Summary ---
Author Organization [facility] Address [address] [place] [address] Phone Care Team Providers Care Photo Lab Specialist Name Role Phone Christine Alexander MD Primary Care Provider [phone] Immunizations Immunization Administration Dates Next Due DTaP 5 05/02/2001, 8,04/16/1997, 997,1996 HPV, Quadrivalent 01/16/2014,09/27/2012,06/06/20 11 Hep A, ped/adol 09/27/2012,03/07/2010 Hep B, ped/adol 11/05/1997,1996,1996 Hib (PRP-T) 01/01/1998, 7,02/10/1997, 997 IPV 03/28/2001 Influenza, injectable, trivalent 06/06/2011 Influenza, intranasal, trivalent 06/26/2012 MMR 05/02/2001,04/18/2000,01/01/1998 Meningococcal Conj (Menactra) MCV4P 01/16/2014,0 10/14/2008 OPV 04/16/1997,02/10/1997,1996 Tdap 10/14/2008 Varicella 10/14/2008,04/02/1998 Social History Tobacco Use Types Packs/Day Years Used Date Smoking Tobacco: Never Comments:Never Smoker Comments Unknown Sex and Gender Information Value Date Recorded Sex Assigned at Not on file Legal Sex Female 6:28 PM EDT Gender Identity Not on file Sexual Orientation Not on file Last Filed Vital Signs Vital Sign Reading Time Taken Comments Blood Pressure - - Pulse 80 08/08/2017 11:08 AM EST Temperature 36.6 C (97.9 F) 06/15/2017 10:11 AM EST Respiratory Rate - - Oxygen Saturation 98% 08/08/2017 11:08 AM EST Inhaled Oxygen Concentration - - Weight 58.2 kg (128 lb 3.2 oz) 08/08/2017 11:08 AM EST Height 154.9 cm (5' 1 ) 08/08/2017 11:08 AM EST Body Mass Index 24.22 08/08/2017 11:08 AM EST Plan of Treatment Health Maintenance Due Date Last Done Comments DTaP,Tdap,and Td Vaccines (7 - Td or Tdap) 10/14/2018 10/14/2008, 05/02/2001, 04/02/1998, Additional history exists Influenza Vaccines (#1) 2025 06/26/2012, 06/06 COVID-19 Vaccine ( season) 2025 Hepatitis B Vaccines Completed 11/05/1997, 1996, 1996 HIB Vaccines Completed 01/01/1998, 0 03/1997, 02/10/1997, Additional history exists IPV Vaccines Completed 03/28/2001, 0 03/1997, 02/10/1997, Additional history exists MMR Vaccines Completed 05/02/2001, 04/08, 01/01/1998 Varicella Vaccines Completed 10/14/2008, 04/02/1998 Hepatitis A Vaccines Completed 09/27/2012, 03/07/20 10 HPV Vaccines Completed 01/16/2014, 09/07, 06/06/2011 Meningococcal Vaccine Completed 01/16/2014, 009 Men B Vaccine Aged Out No longer elig ible based on patient's age to complete this topic Pneumococcal Vaccine Aged Out No long er eligible based on patient's age to complete this topic Care Teams Photo Lab Specialist Relationship Specialty Start Date End Date Christine Alexander MD [address] [facility] [place] [id number] PCP - General 11/14/17
--- OUTSIDE RECORDS SUMMARY | 2025-06-23 09:16 | XMS_ITS | Encounter Summary ---
Author Organization [facility] Address [address] [place] [phone] Phone Care Team Providers Care Last Inserter Name Role Phone Christine Alexander MD Primary Care Provider [phone] Encounter Details Date Type Department Care Team (Late st Contact Info) Description 03/16/2011 Conversion Encounter [facility] [address] [place] [id number] Social History Tobacco Use Types Packs/Day Years Used Date Smoking Tobacco: Never Assessed Comments Unknown Sex and Gender Information Value Date Recorded Sex Assigned at Not on file Legal Sex Female 6:28 PM EDT Gender Identity Not on file Sexual Orientation Not on file documented as of this encounter Plan of Treatment Not on file documented as of this encounter Visit Diagnoses Not on filedocumented in this encounter Care Teams Last Inserter Relationship Specialty Start Date End Date Christine Alexander MD [address] [place] [address] PCP - General 11/14/17 documented as of this encounter
== END 2025-06-23 09:46 | disposition home or self-care (01) ==
PROVIDERS: PCP Internal Medicine; Visit Provider Physician Assistant
DX: R10.9 Unspecified abdominal pain (principal)

== ENCOUNTER → 2025-06-23 08:39 | Outpatient (BNVA) | payer OTHER, SELFPAY | PROVIDERS: PCP Internal Medicine; Visit Provider Physician Assistant | DX: R63.4 Abnormal weight loss (principal); R10.9 Unspecified abdominal pain; R53.83 Other fatigue; R14.0 Abdominal distension (gaseous) | CPT/HCPCS: 99212 ==